=== PATIENT | female | born 1955 | race Caucasian/White ===

== ENCOUNTER → 2016-07-10 | Outpatient (CLI) | payer OTHER ==
[~2016-07-10] MED LIST: ACET650T5 PO; ADAL40KI INJ; ALPR0.2563 PO; AMIT10TA92 PO; CARV6.25 PO; CETI10TA25 PO; CHLO25TA2 PO; CYCL-375 PO; FLUT16SP12 EA NOSTRIL; HYDR200T PO; LISI-126 PO; OMEP20CA81 PO; PARO10TA PO; POTA10CA37 PO; [UNRECOGNIZED DRUG - CODE] PO; [UNRECOGNIZED DRUG - CODE] PO
[2016-07-10 16:23] LABS: BASOPHILS % (AUTO) 0.3 % (0-2); EOSINOPHILS # (AUTO) 0.4 T/MM3 (0-0.5); EOSINOPHILS % (AUTO) 6.1 % (0-4); HCT - HEMATOCRIT 38.9 % (36-46); HGB - HEMOGLOBIN 12.4 GM/DL (12-16); IMMATURE GRANULOCYTE # (AUTO) 0.01 T/MM3 (0.00-0.03); IMMATURE GRANULOCYTE % (AUTO) 0.2 % (0.0-0.5); LYMPHOCYTES # (AUTO) 1.9 T/MM3 (1-4.8); LYMPHOCYTES % (AUTO) 31.2 % (23-45); MEAN CORPUSCULAR HGB 28.6 UUG (26-34); MEAN CORPUSCULAR HGB CONC(MCHC 31.9 GM/DL (31-37); MEAN CORPUSCULAR VOLUME 89.6 UM3 (80-100); MONOCYTES # (AUTO) 0.5 T/MM3 (0-0.8); MONOCYTES % (AUTO) 8.1 % (0-9.0); NEUTROPHILS #(AUTO)-ABSOLUTE 3.4 T/MM3 (1.8-7.7); NEUTROPHILS % (AUTO) 54.1 % (33-66); RED BLOOD COUNT 4.34 M/MM3 (4.00-5.20); WBC - WHITE BLOOD COUNT 6.2 T/MM3 (4.5-11.0)
[2016-07-10 16:35] LABS: ALBUMIN 4.1 G/DL (3.5-5.0); ALBUMIN/GLOBULIN RATIO 1.1 RATIO (1.1-2.2); ALKALINE PHOSPHATASE 116 U/L (38-126); ALT (SGPT) 52 U/L (9-52); ANION GAP 12 MEQ/L (5-15); AST (SGOT) 38 U/L (14-36); BUN/CREATININE RATIO 18 RATIO (6-26); C-REACTIVE PROTEIN < 5.0 MG/L (0-9); CALCIUM 9.4 MG/DL (8.4-10.2); CHLORIDE 101 MEQ/L (98-107); CO2 - CARBON DIOXIDE 32 MEQ/L (22-30); CREATININE 0.8 MG/DL (0.7-1.2); GLOMERULAR FILTRATION RATE 73; GLUCOSE 99 MG/DL (65-110); POTASSIUM 4.2 MEQ/L (3.6-5); SODIUM 145 MEQ/L (134-144); TOTAL PROTEIN 7.8 G/DL (6.3-8.2)
== END ==
LOC: LAB 16:05
PROVIDERS: ATTEND Internal Medicine Rheumatology
DX: L40.8 Other psoriasis (principal); L40.59 Other psoriatic arthropathy
CPT/HCPCS: 36415; 80053; 85025; 85652; 86140

== ENCOUNTER → 2016-07-10 | Outpatient (CLI) | payer OTHER ==
[2016-07-10 16:34] LABS: ANION GAP 13 MEQ/L (5-15); BUN/CREATININE RATIO 18 RATIO (6-26); CALCIUM 9.4 MG/DL (8.4-10.2); CHLORIDE 101 MEQ/L (98-107); CO2 - CARBON DIOXIDE 31 MEQ/L (22-30); CREATININE 0.8 MG/DL (0.7-1.2); GLOMERULAR FILTRATION RATE 73; GLUCOSE 99 MG/DL (65-110); MAGNESIUM 2.1 MG/DL (1.6-2.3); POTASSIUM 4.3 MEQ/L (3.6-5); SODIUM 145 MEQ/L (134-144)
== END ==
LOC: LAB 16:06
PROVIDERS: ATTEND Internal Medicine Cardiovascular Disease
DX: R60.0 Localized edema (principal)
CPT/HCPCS: 36415; 80048; 83735